=== PATIENT | female | born 1965 | race Caucasian/White ===

== ENCOUNTER 2022-08-05 03:51 | Day surgery (SDC) | payer OTHER ==
[2022-08-05] MEDS ORDERED: LIDOCAINE HCL 1%, 10 MG/ML (20ML VIAL) INF ONE ×3 (08:10→10:04)
[2022-08-05 08:46] LABS: URINE APPEARANCE CLEAR; URINE BILIRUBIN NEGATIVE (NEGATIVE); URINE COLOR YELLOW; URINE GLUCOSE (UA) NEGATIVE (NEGATIVE); URINE KETONE NEGATIVE (NEGATIVE); URINE LEUK ESTERASE NEGATIVE (NEGATIVE); URINE NITRITE NEGATIVE (NEGATIVE); URINE PROTEIN NEGATIVE (NEGATIVE); URINE UROBILINOGEN 0.2 mg/dL (0.2-1.0)
[2022-08-05] MEDS ORDERED: PROPOFOL 20 ML ONE ×2 (09:20→09:58)
[2022-08-05] MEDS ORDERED: MIDAZOLAM HCL 2 MG/2 ML SINGLE DOSE VIAL ONE (09:21)
[2022-08-05] MEDS ORDERED: ONDANSETRON 4 MG/2 ML VIAL IVPUSH PRN (09:43)
[2022-08-05] MEDS ORDERED: oxyCODONE HCL 5 MG TABLET PO PRN ×2 (09:43)
[2022-08-05] MEDS ORDERED: ACETAMINOPHEN 325 MG TABLET (FP) PO PRN (09:43)
[2022-08-05] MEDS ORDERED: LACTATED RINGERS SOLUTION 1,000 ML IV SCH (09:45)
[2022-08-05] MEDS ORDERED: ceFAZolin SODIUM 1 GM VIAL IVPB ONE (09:55)
== END 2022-08-05 13:00 | disposition home or self-care (01) ==
LOC: JASU-SURG 03:51
PROVIDERS: ATTEND Surgery
PROC: 0HBU0ZZ Excision of Left Breast, Open Approach (ICD-10-PCS; principal; 2022-08-05 09:00)
DX: N60.92 Unspecified benign mammary dysplasia of left breast (principal); N60.12 Diffuse cystic mastopathy of left breast
CPT/HCPCS: 19281; 76098-TC-FY; 81003; 88307-TC; 88342-TC; 94760